=== PATIENT | male | born 1990 | race Hispanic/Latino ===

== ENCOUNTER 2019-05-05 16:40 | Emergency (ER) | payer SELFPAY ==
--- NOTE | 2019-05-05 17:29 | RAD REPORT ---
EXAM DESCRIPTION: CT - Head C Spine Cap W Con - 05/05/2019 5:10 pm CLINICAL HISTORY: fall, posterior trauma, pain to neck/thorax/spine COMPARISON: No comparisons TECHNIQUE: Axial [address] head images were obtained. Axial [address] cervical spine images were obtaine d with sagittal and coronal reconstruction images reviewed. During dynamic enhancement of 100mL non-i onic contrast, axial 5 mm images of the chest, abdomen and pelvis were obtained. All CT scans are performed using dose optimization technique as appropriate and may include automated exposure control or mA/KV adjustment according to patient size. FINDINGS: No intracranial hemorrhage, mass or edema. No midline shift or abnormal fluid collection. Mastoid air cells and paranasal sinuses are clear. No skull fracture. Cervical bodies are normal in height. No subluxation abnormalities. There is left lateral tilt of the cervical spine. This may be due to muscle spasm. This also creates asymmetry in evaluation of the he ad and upper cervical structures. No disc space narrowing. No paraspinal mass or hematoma seen. Centr al canal detail is inherently limited. Concerns for traumatic disc herniation or traumatic cord injur y can be further addressed with MR imaging. CT chest shows no pneumothorax, pulmonary contusion or pleural fluid collection. No mediastinal hemat kunal and the aorta and pulmonary arteries are unremarkable. No chest will mass or abnormal axillary fi nding. No displaced rib fracture or other significant bony finding. CT abdomen and pelvis show no injury to solid abdominal viscera. Gallbladder and biliary tree are unr emarkable. No bowel injury or significant finding. No free air, free fluid or abnormal stranding. No urinary bladder abnormality. No significant bony finding. IMPRESSION: No hemorrhage or acute intracranial finding. Left lateral tilt of the cervical spine probably from muscle spasm. No fracture or alignment abnormal ity otherwise noted. No traumatic injuries to the chest. Thoracic spine and posterior ribs are intact. No significant CT Abdomen and Pelvis finding.
[2019-05-05 17:30] LABS: Absolute Lymphocytes (CBC) 1.5 K/uL (0.7-4.9); Hematocrit 44.8 % (39.6-49.0); Lymphocytes % 21.2 % (15.3-44.8); MPV 9.3 fL (7.6-11.3)
[2019-05-05 17:43] LABS: BUN Blood Urea Nitrogen 13 mg/dL (7-18); Bicarbonate 27 mmol/L (21-32); Glucose Level 93 mg/dL (74-106); Potassium 3.7 mmol/L (3.5-5.1); Sodium Level 135 mmol/L (136-145)
--- NOTE | 2019-05-05 17:52 | ER ---
Nurse's Notes [facility] Name: Arthur Lan Age: 29 yrs Sex: Male : 1990 Arrival Date: 05/05/2019 Time: 16:48 Bed 23 Private MD: Diagnosis: Contusion of back wall of thorax Presentation: 05/05 16:48 Presenting complaint: EMS states: pt was pulling a hose and then collapsed. pian to mid ch thoracic area. pt was screamingin pain, given 75mcg of fentynal and 16G IV in R ac. Transition of care: patient was not received from another setting of care. Onset of symptoms was May 05, 2019 at 16:00. Risk Assessment: Do you want to hurt yourself or someone else? Patient reports no desire to harm self or others. Initial Sepsis Screen: Does the patient meet any 2 criteria? No. Patient's initial sepsis screen is negative. Does the patient have a suspected source of infection? No. Patient's initial sepsis screen is negative. Care prior to arrival: Cervical collar in place. Placed on backboard. Medication(s) given: fentynl IV initiated. in the right antecubital area, 16. 16:48 Method Of Arrival: EMS: [facility] 16:48 Acuity: KIKO 3 16:48 Mechanism of Injury: pt was pulling on a hose. 16:48 Trauma event details: Injury occurred in the [facility], Injury occurred: construction site Injury occurred: May 05, 2019 Injury occurred at: 16:00. Triage Assessment: 18:29 General: Appears in no apparent distress. uncomfortable. Trauma Activation: Alert Physician: ED Physician; Name: ; Notified At: ; Arrived At: Physician: General Surgeon; Name: ; Notified At: ; Arrived At: Physician: Radiology; Name: ; Notified At: ; Arrived At: Physician: Respiratory; Name: ; Notified At: ; Arrived At: Physician: Lab; Name: ; Notified At: ; Arrived At: Historical: - Allergies: 18:29 No Known Allergies; - Home Meds: 18:29 None [Active]; ch - PMHx: 18:29 POSSIBLE HTN; ch - PSHx: 18:29 None; - Immunization history: Last tetanus immunization: unknown. - Coronavirus screen:: The patient has NOT traveled to [place], [place], or [place] in the past 14 days. The patient has NOT had contact with known/suspected case of Coronavirus?. - Family history:: not pertinent. - Social history:: Smoking status: Patient denies any tobacco usage or history of. - Hospitalizations: : No recent hospitalization is reported. - Ebola Screening: : Patient negative for fever greater than or equal to 101.5 degrees Fahrenheit, and additional compatible Ebola Virus Disease symptoms Patient denies exposure to infectious person Patient denies travel to an Ebola-affected area in the 21 days before illness onset No symptoms or risks identified at this time. Screenin:55 Abuse screen: Denies threats or abuse. Denies injuries from another. Tuberculosis ch screening: No symptoms or risk factors identified. 18:47 Nutritional screening: No deficits noted. Fall Risk None identified. vc Primary Survey: 16:48 NO uncontrolled hemorrhage observed. A: The patient is alert. Airway: patent. ch Breathing/Chest: Respiratory pattern: regular, Respiratory effort: spontaneous, unlabored, Breath sounds: clear, bilaterally. Circulation: Heart tones present. Pulses: palpable bilateral radial, brachial, femoral, popliteal, posterior tibial and and dorsalis pedis arteries.. Skin color: pink, Skin temperature: warm, dry. Disability Alert. Exposure/Environment: All clothing and personal items were removed. Forensic evidence collection is not deemed to be indicated at this time. Items placed in patient belonging bag. There is no evidence of uncontrolled external bleeding. Obvious injury(ies) are noted at this time: pt has red swollen abrasion area to posterior L thoracic wall, right by his spine. 17:01 NO uncontrolled hemorrhage observed. A:. vc 17:30 Reassessment Airway Airway Patent Breathing/Chest Respiratory pattern Regular ch Respiratory effort Spontaneous Unlabored Circulation Pulses Palpable Color [place] Temperature Warm Dry Disability Alert. 18:29 Reassessment Airway Airway Patent Breathing/Chest Respiratory pattern Regular ch Respiratory effort Spontaneous Unlabored Breath sounds Clear Chest inspection Symmetrical Circulation Heart tones Present Color [place] Temperature Warm Dry. Secondary Survey: 17:00 HEENT: No deficits noted. Head No injury/deformity Face No injury/deformity Eyes: No ch injury or deformity noted. Ears: clear Nose: clear. 17:00 Gastrointestinal: Abdomen is soft, Bowel sounds present in all quadrants. Palpation No ch deficit noted. : No signs and/or symptoms were reported regarding the genitourinary system. Musculoskeletal: Capillary refill < 3 seconds, in bilateral fingers. toes. Range of motion: limited in back pt reports pain to back Swelling absent Reports pain in back. Assessment: 16:48 General: Behavior is calm, cooperative, appropriate for age. Pain: Complains of pain in ch left subscapular area and thoracic area Pain currently is 5 out of 10 on a pain scale. 16:55 General: Appears. vc 17:15 Reassessment: Patient and/or family updated on plan of care and expected duration. Pain vc level reassessed. Patient is alert, oriented x 3, equal unlabored respirations, skin warm/dry/pink. 18:21 General: Appears distressed, uncomfortable, Behavior is cooperative, drowsy, quiet. vc Pain: Complains of pain in thoracic area Quality of pain is described as stabbing. Neuro: Level of Consciousness is obeys commands, lethargic, Oriented to person, place. Cardiovascular: Patient's skin is warm and dry. Respiratory: Airway is patent Respiratory effort is even, unlabored. GI: No deficits noted. : No signs and/or symptoms were reported regarding the genitourinary system. EENT: No deficits noted. Derm: Patient has red inflammed area in the middle of his back below scapulas. Patient is covered in dry mud. Musculoskeletal: No signs and/or symptoms reported regarding the musculoskeletal system. Injury Description: Bruise sustained to middle of back between scapulas. 18:26 Reassessment: Patient appears in no apparent distress at this time. Patient and/or family updated on plan of care and expected duration. Pain level reassessed. Patient is alert, oriented x 3, equal unlabored respirations, skin warm/dry/pink. I GO TO DISCHARGE PT HOME, PT STATES HE HURTS TO MUCH TO MOVE. BROTHER REFUSES TO TAKE PT HOME WHILE HE IS IN SO MUCH PAIN. PHYSICIAN IS WITH CRITICAL PATIENT, PT TOLD PHYSICIAN WILL COME SPEAK WITH HIM AGAIN WHEN HE IS AVAILABLE. 18:39 Reassessment: Patient given pain medication, will observe before discharging. vc Vital Signs: 16:55 BP 112 / 68; Pulse 71; Resp 18; Temp 98.6; Pulse Ox 99% on R/A; Weight 63.5 kg; Height 5 ft. 7 in. (170.18 cm); Pain 5/10; 17:40 BP 107 / 68; Pulse 72; Resp 14; Pulse Ox 100% ; Pain 7/10; ch 18:15 BP 119 / 64; Pulse 87; Resp 20; Pulse Ox 100% on R/A; vc 16:55 Body Mass Index 21.93 (63.50 kg, 170.18 cm) ch [place] Coma Score: 16:55 Eye Response: spontaneous(4). Verbal Response: oriented(5). Motor Response: obeys commands(6). Total: 15. Trauma Score (Adult): 16:55 Eye Response: spontaneous(1); Verbal Response: oriented(1); Motor Response: obeys commands(2); Systolic BP: > 89 mm Hg(4); Respiratory Rate: 10 to 29 per min(4); [place] Score: 15; Trauma Score: 12 ED Course: 16:48 Patient arrived in ED. ch 16:48 Felton Romo MD is Attending Physician. rn 16:50 Triage completed. ch 16:50 Denice Frances RN is Primary Nurse. vc 16:55 Patient maintains SpO2 saturation greater than 95% on room air. ch 16:55 Patient maintains SpO2 saturation greater than 95% on room air. Thermoregulation: warm ch blanket given to patient. 17:00 Arm band placed on. vc 17:00 Rigid cervical collar applied. jp3 17:00 Maintain EMS IV. Dressing intact. Good blood return noted. Site clean \T\ dry. Gauge \T\ sandra 3 site: 20-gauge in [facility]. 17:12 CT Traumagram (Head C Spine CAP W Con) In Process Unspecified. EDMS 17:23 Safety checks: Family/friend present: yes. Family/friends encouraged to stay with jp3 patient. Patient has correct armband on for positive identification. Bed in low position. Call light in reach. Side rails up X 1. Side rails up X2. Warm blanket given. Verbal reassurance given. Pulse ox on. NIBP on. 17:25 Initial lab(s) drawn, by me, sent to lab. T\T\S collected, blood band applied to patient. jp3 17:44 Primary Nurse role handed off by Denice Frances, KOBY ch 17:44 Lauren Skaggs, KOBY is Primary Nurse. ch 18:20 No provider procedures requiring assistance completed. IV discontinued, intact, vc bleeding controlled, No redness/swelling at site. Pressure dressing applied. Administered Medications: 18:30 Drug: Demerol 50 mg Route: IM; Site: left deltoid; vc 19:46 Follow up: Response: No adverse reaction vc Intake: 16:55 PO: 0ml; Total: 0ml. Outcome: 17:51 Discharge ordered by MD. rn 19:01 Patient left the ED. vc 19:01 Discharged to home via wheelchair, with family. vc 19:01 Condition: improved 19:01 Discharge instructions given to patient, family, Instructed on discharge instructions, follow up and referral plans. no driving heavy equipment, medication usage, Demonstrated understanding of instructions, follow-up care, medications, Prescriptions given X 2. 19:01 Patient's length of stay in the Emergency Department was greater than 2 hours. Patients vc family would like to speak to MD prior to discharge.Patient's length of stay extended due to Signatures: Dispatcher [employer] EDMS Lauren Skaggs RN RN Felton Romo MD MD rn Pisarski, Jacob jp3 Denice Frances RN RN vc Corrections: (The following items were deleted from the chart) 18:21 16:48 Acuity: KIKO 4 ch 19:46 18:44 Reassessment: Patient given pain medication, will observe before discharging. vc vc 19:49 19:17 Patient left the ED. vc vc 19:59 19:01 Patient's length of stay in the Emergency Department was greater than 2 hours. vc waiting for patients pain medication to work, we were also making sure patient was able to get up and walk before being sent home. Patient was up and ambulating ten minutes before leaving the ER.Patient's length of stay extended due to vc
--- NOTE | 2019-05-05 17:52 | EDPHYS ---
Physician Documentation [facility] Name: Arthur Lan Age: 29 yrs Sex: Male : 1990 Arrival Date: 05/05/2019 Time: 16:48 Bed 23 Private MD: ED Physician Felton Romo HPI: 05/05 16:50 This 29 yrs old Male presents to ER via Unassigned with complaints of Back rn Injury. 16:50 The patient presents with pain that is acute. The symptoms are located in the left rn subscapular area and thoracic area. Onset: The symptoms/episode began/occurred just prior to arrival. The pain does not radiate. Associated signs and symptoms: The patient has no apparent associated signs or symptoms, Pertinent negatives: abdominal pain, incontinence, numbness, tingling, urinary retention, weakness. Modifying factors: The patient symptoms are alleviated by remaining still, the patient symptoms are aggravated by movement. Severity of symptoms: At their worst the symptoms were mild, in the emergency department the symptoms are unchanged. The patient has not experienced similar symptoms in the past. 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 Patient denies LOC, reports pulling hose and fell/hit back on something, not sure what it was, was not fall from height. Reports neck and midscapular pain, worse with movement and palpation. All posterior pain. Patient denies abd pain. No weakness of legs or numbness/tingling. NO blood thinners, reports HTN and no other medical problems. . Historical: - Allergies: 18:29 No Known Allergies; ch - Home Meds: 18:29 None [Active]; ch - PMHx: 18:29 POSSIBLE HTN; ch - PSHx: 18:29 None; ch - Immunization history: Last tetanus immunization: unknown. - Coronavirus screen:: The patient has NOT traveled to [place], [place], or [place] in the past 14 days. The patient has NOT had contact with known/suspected case of Coronavirus?. - Family history:: not pertinent. - Social history:: Smoking status: Patient denies any tobacco usage or history of. - Hospitalizations: : No recent hospitalization is reported. - Ebola Screening: : Patient negative for fever greater than or equal to 101.5 degrees Fahrenheit, and additional compatible Ebola Virus Disease symptoms Patient denies exposure to infectious person Patient denies travel to an Ebola-affected area in the 21 days before illness onset No symptoms or risks identified at this time. ROS: 16:50 Constitutional: Negative for fever, chills, and weight loss, Eyes: Negative for injury, rn pain, redness, and discharge, Neck: + lower neck pain Cardiovascular: Negative for chest pain, palpitations, and edema, Respiratory: Negative for shortness of breath, cough, wheezing, and pleuritic chest pain, Abdomen/GI: Negative for abdominal pain, nausea, vomiting, diarrhea, and constipation, Back: + injury and pain to mid and upper back : Negative for injury, bleeding, discharge, and swelling, MS/Extremity: Negative for injury and deformity, Neuro: Negative for headache, weakness, numbness, tingling, and seizure. Exam: 16:50 Constitutional: This is a well developed, well nourished patient who is awake, alert, rn and in no acute distress. Head/Face: Normocephalic, atraumatic. Eyes: Pupils equal round and reactive to light, extra-ocular motions intact. Lids and lashes normal. Conjunctiva and sclera are non-icteric and not injected. Cornea within normal limits. Periorbital areas with no swelling, redness, or edema. ENT: No oral trauma Neck: In ccollar, no midline tenderness Chest/axilla: Normal chest wall appearance and motion. Nontender with no deformity. No lesions are appreciated. Cardiovascular: Regular rate and rhythm. No pulse deficits. Respiratory: Lungs have equal breath sounds bilaterally, clear to auscultation. No increased work of breathing, no retractions or nasal flaring. Abdomen/GI: soft, non-tender Back: + mid and left thoracic spinal tenderness with approx 8 inch triangular impression on skin parallel to spine, no open wounds, no crepitus, no stepoff. Male : Normal genitalia with no discharge or lesions. MS/ Extremity: Pulses equal, no cyanosis. Neurovascular intact. Full, normal range of motion. Equal circumference. Neuro: Awake and alert, GCS 15, oriented to person, place, time, and situation. Motor strength 5/5 in all extremities. Sensory grossly intact. Vital Signs: 16:55 BP 112 / 68; Pulse 71; Resp 18; Temp 98.6; Pulse Ox 99% on R/A; Weight 63.5 kg; Height ch 5 ft. 7 in. (170.18 cm); Pain 5/10; 17:40 BP 107 / 68; Pulse 72; Resp 14; Pulse Ox 100% ; Pain 7/10; ch 18:15 BP 119 / 64; Pulse 87; Resp 20; Pulse Ox 100% on R/A; vc 16:55 Body Mass Index 21.93 (63.50 kg, 170.18 cm) [place] Coma Score: 16:55 Eye Response: spontaneous(4). Verbal Response: oriented(5). Motor Response: obeys commands(6). Total: 15. Trauma Score (Adult): 16:55 Eye Response: spontaneous(1); Verbal Response: oriented(1); Motor Response: obeys commands(2); Systolic BP: > 89 mm Hg(4); Respiratory Rate: 10 to 29 per min(4); [place] Score: 15; Trauma Score: 12 MDM: 16:48 Patient medically screened. rn 17:48 Differential diagnosis: Fracture vertebral fracture, rib fracture, spinal fracture, rn contusion. Data reviewed: vital signs, nurses notes, lab test result(s), radiologic studies, CT scan, and as a result, I will discharge patient. Counseling: I had a detailed discussion with the patient and/or guardian regarding: the historical points, exam findings, and any diagnostic results supporting the discharge/admit diagnosis, radiology results, the need for outpatient follow up, to return to the emergency department if symptoms worsen or persist or if there are any questions or concerns that arise at home. Response to treatment: the patient's symptoms have markedly improved after treatment, and as a result, I will discharge patient. Special discussion: I discussed with the patient/guardian in detail that at this point there is no indication for admission to the hospital. It is understood, however, that if the symptoms persist or worsen the patient needs to return immediately for re-evaluation. ED course: NO acute traumatic findings on CT head/spine/chest/abdomen/pelvis. Will dc home as thoracic contusion.. 17:50 ED course: Normal neuro exam, no motor or sensory deficit. Neg CT for trauma, will dc rn home.. 19:02 ED course: Pt ambulatory and feels much better. rn 05/05 16:49 Order name: Basic Metabolic Panel; Complete Time: 17:45 rn 05/05 16:49 Order name: CBC with Diff; Complete Time: 18:37 rn 05/05 16:49 Order name: CT Traumagram (Head C Spine CAP W Con) rn 05/05 16:49 Order name: Creatinine for Radiology; Complete Time: 17:50 rn 05/05 16:49 Order name: Type And Screen; Complete Time: 18:37 rn 05/05 16:49 Order name: Labs collected and sent; Complete Time: 17:26 rn Administered Medications: 18:30 Drug: Demerol 50 mg Route: IM; Site: left deltoid; vc 19:46 Follow up: Response: No adverse reaction vc Disposition: 05/05/19 17:51 Discharged to Home. Impression: Contusion of back wall of thorax. - Condition is Stable. - Discharge Instructions: Contusion. - Prescriptions for Tylenol- Codeine #3 300-30 mg Oral Tablet - take 1 tablet by ORAL route every 6 hours As needed; 15 tablet. Cyclobenzaprine 10 mg Oral Tablet - take 1 tablet by ORAL route every 8 hours As needed; 20 tablet. - Medication Reconciliation Form, Thank You Letter, Antibiotic Education, Prescription Opioid Use, Work release form form. - Follow up: Private Physician; When: As needed; Reason: Recheck today's complaints, Re-evaluation by your physician. - Problem is new. - Symptoms have improved. Signatures: Dispatcher [employer] EDLauren Cortes, RN Felton El ch, MD MD rn Calcote, Vanessa, RN RN vc Corrections: (The following items were deleted from the chart) 19:17 17:51 05/05/2019 17:51 Discharged to Home. Impression: Contusion of back wall of vc thorax. Condition is Stable. Forms are Medication Reconciliation Form, Thank You Letter, Antibiotic Education, Prescription Opioid Use. Follow up: Private Physician; When: As needed; Reason: Recheck today's complaints, Re-evaluation by your physician. Problem is new. Symptoms have improved. rn
[2019-05-05] MEDS ORDERED: MEPERIDINE HCL 50 MG/ML ONE (18:39)
[2019-05-05 19:46] VITALS: TEMP 98.6
[2019-05-05 19:47] VITALS: O2SAT 100
[2019-05-05 19:48] VITALS: BP 119/64
== END 2019-05-05 19:17 | disposition home or self-care (01) ==
LOC: EDBD 16:40 → ER 16:40
DX: S20.229A Contusion of unspecified back wall of thorax, initial encounter (principal); W19.XXXA Unspecified fall, initial encounter; Y93.89 Activity, other specified; Y92.69 Other specified industrial and construction area as the place of occurrence of the external cause; Y99.8 Other external cause status
CPT/HCPCS: 36415; 70450; 71260; 72125; 74177; 80048; 85025; 86850; 86900; 86901; 96372; 99284; J2175; Q9967